=== PATIENT | female | born 2000 | race Caucasian/White ===

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

== ENCOUNTER 2021-02-22 16:17 | Emergency (ER) | payer MEDICAID ==
[2021-02-22 16:54] VITALS: BP 147/82; PULSE 108
--- NOTE | 2021-02-22 17:47 | EDM.PDOC ---
ED HPI GENERAL MEDICAL PROBLEM - General Chief Complaint: ENT Problem Stated Complaint: EAR INFECT? Time Seen by Provider: 02/22/21 17:46 Source of Information: Reports: Patient, Family History Limitations: Reports: No Limitations - History of Present Illness INITIAL COMMENTS - FREE TEXT/NARRATIVE: pt has a long hiatory of ear infections. She is having ear pain. She has not bee n swimming. Onset: Gradual Duration: Day(s): Location: Reports: Face Associated Symptoms: Reports: No Other Symptoms - Related Data Allergies Allergy/AdvReac Type Severity Reaction Status Date / Time No Known Allergies Allergy Verified 02/22/21 16:57 Home Meds: Home Meds Albuterol [Proventil HFA] 2 puff INH Q2HR PRN 03/13/14 [History] FLUoxetine HCl [Fluoxetine HCl] 40 mg PO DAILY 03/13/14 [History] Beclomethasone Dipropionate [Qvar 80 Mcg] 1 inh INH BID 10/02/16 [History] Lisdexamfetamine Dimesylate [Vyvanse] 40 mg PO DAILY 09/01/18 [History] Penicillin V Potassium 500 mg PO BID 10 Days #20 tablet 01/20/19 [Rx] Past Medical History - Past Health History Medical/Surgical History: Denies Medical/Surgical History HEENT History: Reports: Impaired Vision, Otitis Media Respiratory History: Reports: Asthma Neurological History: Reports: Concussion Psychiatric History: Reports: ADHD, Developmental Delay, OCD Endocrine/Metabolic History: Reports: Obesity/BMI 30+ - Past Surgical History Head Surgeries/Procedures: Reports: None HEENT Surgical History: Reports: None Respiratory Surgical History: Reports: None Endocrine Surgical History: Reports: None Neurological Surgical History: Reports: None Dermatological Surgical History: Reports: None Social & Family History - Tobacco Use Tobacco Use Status *Q: Never Tobacco User Second Hand Smoke Exposure: No - Caffeine Use Caffeine Use: Reports: None - Recreational Drug Use Recreational Drug Use: No ED ROS ENT - Review of Systems Review Of Systems: See Below Constitutional: Reports: No Symptoms HEENT: Reports: Ear Pain Respiratory: Reports: No Symptoms Cardiovascular: Reports: No Symptoms Endocrine: Reports: No Symptoms GI/Abdominal: Reports: No Symptoms ED EXAM, ENT - Physical Exam Exam: See Below Text/Narrative:: pt arrived with pain in both ears she has a long history of ear problems, Exam Limited By: No Limitations General Appearance: Alert, Anxious, Mild Distress Ears: Other ( left drum is red. The rt ear canakl has pus like drainage coating the drum and the canal. ) Nose: Normal Inspection Mouth/Throat: Normal Inspection Head: Atraumatic Course - Vital Signs Last Recorded V/S: Last Vital Signs Temp 36.6 C 02/22/21 16:59 Pulse 108 H 02/22/21 16:59 Resp 22 H 02/22/21 16:59 BP 147/82 H 02/22/21 16:59 Pulse Ox 93 L 02/22/21 16:59 Departure - Departure Time of Disposition: 17:46 Disposition: Home, Self-Care 01 Condition: Fair Clinical Impression: Otitis media, left, Otitis externa of right ear - Discharge Information Instructions: Otitis Media, Adult, [id number] Referrals: Lee Baldwin MD [Primary Care Provider] - Forms: ED Department Discharge Care Plan Goals: tylenol and motrin for pain, amoxicilln 500mg tid, corticosporin ear drops tid in rt ear. rtc if problems. avoid getting moisture in the ear canals. Sepsis Event Note (ED) - Evaluation Sepsis Screening Result: No Definite Risk - Focused Exam Vital Signs: Vital Signs Temp Pulse Resp BP Pulse Ox 02/22/21 16:59 36.6 C 108 H 22 H 147/82 H 93 L 02/22/21 16:53 36.6 C 108 H 22 H 147/82 H 93 L
== END 2021-02-22 17:55 | disposition home or self-care (01) ==
LOC: JP.ED 16:17
DX: H66.92 Otitis media, unspecified, left ear (principal); H60.91 Unspecified otitis externa, right ear; E66.9 Obesity, unspecified; Z68.43 Body mass index [BMI] 50.0-59.9, adult
CPT/HCPCS: 99282; 99283

== ENCOUNTER 2024-12-18 20:21 | Emergency (ER) | payer MEDICAID ==
[2024-12-18 20:41] VITALS: BP 143/55; PULSE 84
[2024-12-18] MEDS: Glucagon,Human Recombinant 1 MG Vial IM ONE (21:18)
== END 2024-12-18 22:15 | disposition home or self-care (01) ==
LOC: JP.ED 20:21
DX: T18.128A Food in esophagus causing other injury, initial encounter (principal); Z79.51 Long term (current) use of inhaled steroids; W44.F3XA Food entering into or through a natural orifice, initial encounter
CPT/HCPCS: 96372; 99283; J1610